=== PATIENT | female | born 2000 | race Two or more races ===

== ENCOUNTER 2023-08-10 10:52 | Emergency (ER) | payer BC, SELFPAY ==
[2023-08-10] VITALS (8 sets, daily range): BP systolic 102–137; BP diastolic 66–87; PULSE 72–80; RESP 16–20; TEMP 36.4–36.8; O2SAT 95–100; BMI 23.4
--- NOTE | 2023-08-10 11:15 | PC.NURSE ---
DR STRICKLAND AT BEDSIDE
--- NOTE | 2023-08-10 11:17 | CT_ITS ---
FINAL REPORT TECHNIQUE: After the administration of intravenous contrast, axial images were obtained through the abdomen and pelvis by computed tomography. This study was performed with technique to keep radiation doses as low as reasonably achievable, (ALARA). Individualized dose reduction techniques using automated exposure control or adjustment of the MA and/or KV according to the patient's size were employed. CLINICAL HISTORY: severe periumbilical and lower abs pain b/l FINDINGS: Abdomen: The lung bases are clear. The liver is normal in size and attenuation. The spleen and gallbladder are unremarkable. The adrenals are normal. The pancreas is unremarkable. The kidneys enhance appropriately. The aorta is normal in caliber. There is no free fluid or adenopathy. Umbilicus is unremarkable. Bowel is normal. Pelvis: There is no evidence of appendicitis. Uterus and ovaries are normal. The urinary bladder is unremarkable. There is no free fluid or adenopathy. IMPRESSION: No acute intra-abdominal process. Reviewed, Interpreted and Dictated by Danish Zapata MD Transcribed by Tahmina Nj Authenticated and [facility]
--- NOTE | 2023-08-10 11:20 | ED_ITS ---
Discharge Plan Disposition Patient Disposition: Home, Self-Care Referrals Follow up/Referrals: Provider,Referral, MD [Referring] - See instructions Activity Restrictions/Add. Instructions Additional Instructions/Restrictions: At this time it was felt you are safe to be discharged home. If new or worsening symptoms please do not hesitate to return the emergency department. Please take antibiotics as prescribed. Please continue to follow-up with your keg varnisher as discussed. Clinical Impressions Clinical Impression: Abdominal pain, UTI (urinary tract infection) Instructions Patient Instructions: DI for Acute Abdominal Pain Discharge ED Provider: Beny Obrien General Adult HPI General Chief complaint: Abdominal Pain Stated complaint: abd pain vomiting Time Seen by Provider: 08/10/23 10:55 Mode of Arrival: Wheelchair Source of Information: Patient Limitations: No Limitations Description of Symptoms (Recalled from ER Triage Doc. by RN): lower abdominal pain. History of Present Illness HPI narrative: Patient is a 23-year-old female with no pertinent past medical history, on testosterone who presents to the emergency department for evaluation abdominal pain. Onset was acute, occurring over this morning, severe periumbilical suprapubic and left lower quadrant. There is associated nonbloody vomiting. Patient has nonbloody stool and is continuing to stool normally. No dysuria reported. She has an IUD in place and does not have any current vaginal bleeding or discharge. She has had similar episodes happen to this before over the last few years that happen approximately once or twice a month however are never this bad. She is pending GI evaluation next month. Due to significant symptoms she presents here for continued evaluation. Related Data Allergies Allergy/AdvReac Type Severity Reaction Status Date / Time No Known Allergies Allergy Verified 08/10/23 11:12 [facility] Disclaimer: The information contained in this section may have been updated after the patient was seen, as this information can be updated by other users. Social History Smoking Status: Current every day smoker alcohol intake: never current occupational status: other Travel in the last 8 weeks: None ROS Obtained: Yes Systems reviewed as appropriate & no additional complaints except as documented Physical Exam General General appearance: alert and in no apparent distress Head Head exam: atraumatic and normocephalic Eye Eye exam: Present PERRL ENT ENT exam: Present mucous membranes moist Neck Neck exam: Present normal inspection Chest Chest inspection: Present normal inspection and symmetric chest wall rise Respiratory Respiratory exam: Present normal lung sounds bilaterally; Absent respiratory distress Cardiovascular Cardiovascular exam: Present regular rate and normal rhythm Abdominal Exam Abdominal exam: Present soft, tenderness (Periumbilical left lower quadrant) and guarding (Voluntary, periumbilical); Absent rebound or rigidity Extremities Exam Extremities exam: Present normal inspection Neurological Exam Neurological exam: Present alert Psychiatric Psychiatric exam: Present normal affect Skin Skin exam: Present warm and dry Medical Decision Making Elias Inquiry Pt receiving controlled substance: No Vital Signs: 08/10/23 10:54 08/10/23 11:31 08/10/23 12:13 Temperature 97.6 F Temperature Source Oral Pulse Rate 75 74 Pulse Rate [Right] 73 Respiratory Rate 20 16 Blood Pressure 102/80 L 113/66 Blood Pressure [Right Arm] 137/83 Blood Pressure Mean 87 74 Blood Pressure Mean [Right Arm] 101 02 Sat by Pulse Oximetry 98 100 95 Oxygen Delivery Method Room Air Room Air 08/10/23 12:30 08/10/23 13:00 08/10/23 13:30 Temperature Temperature Source Pulse Rate 79 72 74 Pulse Rate [Right] Respiratory Rate 18 16 18 Blood Pressure 110/74 116/82 120/87 Blood Pressure [Right Arm] Blood Pressure Mean 86 89 94 Blood Pressure Mean [Right Arm] 02 Sat by Pulse Oximetry 97 99 97 Oxygen Delivery Method 08/10/23 14:00 Temperature Temperature Source Pulse Rate 80 Pulse Rate [Right] Respiratory Rate Blood Pressure 118/70 Blood Pressure [Right Arm] Blood Pressure Mean Blood Pressure Mean [Right Arm] 02 Sat by Pulse Oximetry 97 Oxygen Delivery Method Lab Data Lab Results 08/10/23 10:58: Urine Color Yellow, Urine Appearance Cloudy, Urine pH 8.5, Ur Specific Thaxton 1.020, Urine Protein Trace, Urine Glucose (UA) Negative, Urine Ketones Negative, Urine Blood Negative, Urine Nitrate Negative, Urine Bilirubin Negative, Urine Urobilinogen 0.2, Ur Leukocyte Esterase 3+ A, Urine RBC None, Urine WBC 5-10, Ur Squamous Epith Cells 3-5, Amorphous Sediment 1+, Urine Bacteria 1+ 08/10/23 11:08: WBC 8.1, RBC 4.55, Hgb 14.3, Hct 43.0, MCV 94.5, MCH 31.4 H, MCHC 33.2, RDW 13.2, Plt Count 252, MPV 8.2, Neut % (Auto) 55.2, Lymph % (Auto) 36.5, Aurora % (Auto) 5.8, Eos % (Auto) 1.7, Baso % (Auto) 0.8, Neut # (Auto) 4.5, Lymph # (Auto) 3.0, Aurora # (Auto) 0.5, Eos # (Auto) 0.1, Baso # (Auto) 0.1, Sodium 138, Potassium 3.6, Chloride 104, Carbon Dioxide 22, Anion Gap 15.6 H, BUN 12, Creatinine 0.70, Estimated Creat Clear 149, Estimated GFR 103, Est GFR ( Amer) 124, Glucose 98, Calcium 9.6, Total Bilirubin 0.3, AST 27, ALT 19, Alkaline Phosphatase 47, Total Protein 7.0, Albumin 4.4, Globulin 2.6, Albumin/Globulin Ratio 1.7, Lipase 167, Serum HCG, Qual Negative, HCG, Quant < 2 08/10/23 11:08 08/10/23 11:08 Orders (Tests/Meds): ED MEDICATIONS Generic Name Dose Route Start Last Admin Trade Name Fremarquez PRN Reason Stop Dose Admin Sodium Chloride 10 ml 08/10/23 11:13 Sodium Chloride 0.9% 10ml Flush Syringe IV 09/09/23 11:12 NEEDED PRN Maintain IV Site Discontinued Medications Generic Name Dose Route Start Last Admin Trade Name Freq PRN Reason Stop Dose Admin Acetaminophen 1,000 mg 08/10/23 11:17 08/10/23 11:27 Acetaminophen 1,000mg/100ml Vial IV 08/10/23 11:18 1,000 mg ONCE ONE Administration Lactated Ringer's 1,000 mls @ 999 mls/hr 08/10/23 11:19 08/10/23 11:26 Lactated Ringer's 1000 Ml Bag IV 08/10/23 12:19 999 mls/hr .Q1H1M ONE Administration Iopamidol 75 ml 08/10/23 12:05 08/10/23 12:07 Iopamidol-370 (76%);100ml Bottle IV 08/10/23 12:06 75 ml ONCE ONE Administration Ketorolac Tromethamine 30 mg 08/10/23 11:17 08/10/23 11:27 Ketorolac 30mg/Ml Vial IV 08/10/23 11:18 30 mg ONCE ONE Administration Morphine Sulfate 4 mg 08/10/23 11:17 08/10/23 11:27 Morphine 4mg/Ml Syringe IV 08/10/23 11:18 4 mg ONCE ONE Administration Ondansetron HCl 4 mg 08/10/23 11:17 08/10/23 11:27 Ondansetron 4mg/2ml Vial IV 08/10/23 11:18 4 mg ONCE ONE Administration Sodium Chloride 10 ml 08/10/23 12:05 08/10/23 12:07 Sodium Chloride 0.9% 10ml Syr (Rad Only) IV 08/10/23 12:06 10 ml ONCE ONE Administration ORDERS Category Date Time Status CT abdomen pelvis w con Stat Cat Scan 08/10/23 11:17 Completed CBC w/Auto Diff [Complete Blood Count Auto Diff] Stat Lab 08/10/23 11:08 Completed CMP [Comprehensive Metabolic Panel] Stat Lab 08/10/23 11:08 Completed HCG Qualitative, Serum Stat Lab 08/10/23 11:08 Completed HCG,Quantitative Stat Lab 08/10/23 11:08 Completed Lipase Stat Lab 08/10/23 11:08 Completed UA [Urinalysis and Microscopic] Stat Lab 08/10/23 10:58 Completed Urine Culture Stat Micro 08/10/23 10:58 Received Medical Decision Narrative: In summary patient is a 23-year-old female with past medical history described above presents emergency department for evaluation abdominal pain. Patient is hemodynamically stable nontoxic-appearing upon arrival, afebrile. Patient is tender. Differential includes colitis, sinusitis, UTI, ovarian pathology, among others. Workup will be conducted with hematologic labs, CT abdomen pelvis IV contrast, urinalysis, hCG. Initial inventions include Tylenol, Toradol, Zofran, crystalloid bolus. Workup reviewed by me, hematologic labs are nonactionable, hCG negative. 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 CT imaging abdomen pelvis remarkable for normal ovaries and uterus, no acute abdominal process. Upon repeat evaluation patient was well-appearing. Given this patient is appropriate for discharge at this time will be discharged with a course of Macrobid and was given return precautions. Patient was encouraged to follow-up with gastroenterology. Critical Care Critical Care Time Critical Care Time: No
[2023-08-10 11:24] LABS: Microscopic, Urine URINE MICROSCOPIC (MICROSCOPIC)
[2023-08-10] MEDS: LACTATED RINGERS 1000ML 1,000 ML 999 ML IV (11:26)
[2023-08-10] MEDS: KETOROLAC 30MG/ML VIAL 30 MG IV (11:27)
[2023-08-10] MEDS: MORPHINE 4MG/ML SYRINGE 4 MG IV (11:27)
[2023-08-10] MEDS: ACETAMINOPHEN 1,000MG/100ML VIAL 1000 MG IV (11:27)
[2023-08-10] MEDS: ONDANSETRON 4MG/2ML VIAL 4 MG IV (11:27)
[2023-08-10 11:28] LABS: Appearance,Urine CLOUDY (Clear); Bilirubin,Urine Negative (Negative); Blood, Urine Negative (Negative); Color,Urine YELLOW (Yellow); Glucose,Urine (UA) Negative (Negative); Ketones,Urine Negative (Negative); Leukocyte Esterase,Urine 3+ (Negative); Nitrate,Urine Negative (Negative); PH,Urine 8.5 (5.0-8.5); Protein,Urine TRACE (Negative); Urobilinogen,Urine 0.2 EU/dl (0.2)
[2023-08-10 11:31] LABS: Basophils # 0.1 K/mm3 (0-0.2); Basophils % 0.8 % (0.1-2.0); Eosinophils # 0.1 K/mm3 (0.0-0.4); Eosinophils % 1.7 % (0.1-12.0); Hemoglobin 14.3 g/dL (12.2-16.2); Lymphocytes % 36.5 % (10-50); Mean Corpuscular HGB Conc 33.2 g/dL (31.8-35.4); Mean Corpuscular Hemoglobin 31.4 pg (27.0-31.2); Mean Corpuscular Volume 94.5 fl (81-99); Mean Platelet Volume 8.2 fl (7.4-10.4); Monocytes # 0.5 K/mm3 (0.1-1.0); Monocytes % 5.8 % (1.7-9.3); Neutrophils # 4.5 K/mm3 (1.8-7.8); Neutrophils % 55.2 % (37.0-80.0); Platelet Count 252 K/mm3 (142-424); Red Blood Count 4.55 M/mm3 (4.20-5.40); Red Cell Distribution Width 13.2 % (11.5-17.5); White Blood Count 8.1 K/mm3 (4.8-10.8)
[2023-08-10 11:33] LABS: Alanine Aminotransferase 19 U/L (12-78); Albumin Level 4.4 g/dl (3.5-5.0); Albumin/Globulin Ratio 1.7 (1.1-1.8); Alkaline Phosphatase 47 U/L (38-126); Anion Gap 15.6 mEq/L (5-15); Aspartate Amino Transferase 27 U/L (14-36); Bilirubin,Total 0.3 mg/dl (0.2-1.3); Blood Urea Nitrogen 12 mg/dl (7-17); Calcium 9.6 mg/dl (8.4-10.2); Carbon Dioxide 22 mmol/L (22.0-30.0); Chloride 104 mmol/L (98-107); Creatinine Clearance Estimated 149 mL/min (50-200); Estimated Glomerular Filt Rate 103 ml/min (>60); GFR (African American) 124 ML/MIN (>60); Globulin 2.6 g/dL (1.3-3.2); Glucose 98 mg/dl (74-100); Lipase 167 U/L (23-300); Potassium 3.6 mmoL/L (3.5-5.1); Sodium 138 mmol/L (136-145)
--- NOTE | 2023-08-10 11:37 | PC.NURSE ---
provided pt with a warm blanket and dimmed lights per pt request. family at bedside. call light within reach.
[2023-08-10 11:38] LABS: HCG Qualitative, Serum Negative (Negative)
[2023-08-10 11:41] LABS: Amorphous Sediment,Urine 1+ /lpf; Bacteria,Urine 1+ /lpf
--- NOTE | 2023-08-10 11:57 | PC.NURSE ---
pt transported to radiology
[2023-08-10 12:00] LABS: HCG,Quantitative < 2 mIU/ml (0-5.42)
[2023-08-10] MEDS: SODIUM CHLORIDE 0.9% 10ML SYR (RAD ONLY) 10 ML IV (12:07)
[2023-08-10] MEDS: IOPAMIDOL-370 (76%);100ML BOTTLE 75 ML IV (12:07)
--- NOTE | 2023-08-10 12:11 | PC.NURSE ---
pt returned from radiology
--- NOTE | 2023-08-10 12:13 | PC.NURSE ---
Pt returned from CT
--- NOTE | 2023-08-10 12:27 | PC.NURSE ---
pt resting in bed. call light within reach. bed in lowest position. updated on plan of care. no questions or concerns voiced.
--- NOTE | 2023-08-10 14:25 | PC.NURSE ---
PT TO BR
== END 2023-08-10 14:44 | disposition home or self-care (01) ==
PROVIDERS: Emergency Provider Emergency Medicine; PCP Family Medicine
DX: R10.84 Generalized abdominal pain (principal); N39.0 Urinary tract infection, site not specified; B96.89 Other specified bacterial agents as the cause of diseases classified elsewhere; F17.210 Nicotine dependence, cigarettes, uncomplicated
CPT/HCPCS: 74177; 80053; 81001; 83690; 84702; 84703; 85025; 87086; 96361; 96374; 96375; 99285; J0131; J1885; J2270; J2405; J7120; Q9967